=== PATIENT | female | born 1990 | race Hispanic/Latino ===

== ENCOUNTER 2018-02-15 04:22 | Emergency (ER) | payer BC ==
[2018-02-15 04:37] VITALS: BMI 31.3
[2018-02-15 04:42] VITALS: RESP 18
--- NOTE | 2018-02-15 04:49 | ED PDOC ---
HPI: Female Pain Time Seen by Provider: 02/15/18 04:35 Chief Complaint (Nursing): Female Genitourinary Additional Complaint(s): Pt seen and examined at bedside with attending. 27F no PMH p/w vaginal bleeding @ 8 weeks based on early ultrasound. She reports vaginal bleeding that started as spotting on Thursday evening and informed OB physician at that time. Thursday began with persistent spotting that gradually increased in volume and then passing of clots at 2pm. Patient has used 5-6 pads since 2pm, however in the middle of the night she began experiencing regular severe cramping 01/06 that brought her into the ER. She last took 650mg of Tylenol approximately an hour prior to presentation that has not helped with the pain. She denies current SOB, chest pain/palpitations, and denies fevers, chills at this time. OB: Dr Masters PMH: None PSH: as a child LMP: 12/05/2017 ALL: NKDA Past Medical History Vital Signs: Last Vital Signs Temp 37.2 C 02/15/18 04:37 Pulse 103 H 02/15/18 04:37 Resp 18 02/15/18 04:37 BP 99/57 L 02/15/18 04:37 Pulse Ox 99 02/15/18 04:37 - Family History Family History: States: No Known Family Hx - Allergies Allergies/Adverse Reactions: Allergies Allergy/AdvReac Type Severity Reaction Status Date / Time No Known Allergies Allergy Verified 02/15/18 04:32 Review of Systems ROS Statement: Except As Marked, All Systems Reviewed And Found Negative Genitourinary Female: Positive for: Vaginal Bleeding, Pelvic Pain Physical Exam - Reviewed Vital Signs Reviewed: Yes - Physical Exam Appears: Positive for: Non-toxic, In Acute Distress Head Exam: Positive for: ATRAUMATIC Skin: Positive for: Warm, Dry. Negative for: Normal Color (pale) Eye Exam: Positive for: Normal appearance, EOMI Neck: Positive for: Supple Cardiovascular/Chest: Positive for: Tachycardia. Negative for: Murmur Respiratory: Positive for: Normal Breath Sounds. Negative for: Crackles, Rales, Rhonchi, Wheezing Pelvic Exam: Positive for: Blood (with clots). Negative for: Speculum Exam Normal, Bimanual Exam Normal (significantly painful, unable to palpate cervical os) Extremity: Positive for: Normal ROM Neurologic/Psych: Positive for: Alert, Oriented - Laboratory Results Result Diagrams: 02/15/18 04:50 02/15/18 05:15 - ECG O2 Sat by Pulse Oximetry: 99 - Physician Consult Information Physician Contacted: Doris Gould Outcome Of Conversation: Spoke with Dr Gould regarding patient and circumstances surrounding ER presentation. At this time Dr Gould is in agreement with current management. If ultrasound shows RPC then misoprostol is appropriate, but if no evidence of RPC and bleeding is not excessive likely will not require adjunct medications. Medical Decision Making Medical Decision Making: Suspect SAB - CBC, CMP, betahCG, T&S - Morphine 2mg, 2L LR bolus - TV Ultrasound - Speculum Exam 0532 Pt and spouse informed of suspected SAB, will confirm with TV ultrasound/beta hCG levels, and plan to control pain and ensure hemodynamic stability. Disposition - Clinical Impression Clinical Impression: Vaginal bleeding affecting early - Patient ED Disposition Is Patient to be Admitted: Transfer of Care Discussed With Dr.: Pam Garner Doctor Will See Patient In The: Hospital Counseled Patient/Family Regarding: Diagnosis - Disposition Disposition Time: 07:00 Condition: STABLE Forms: [employer] (Sinhala)
[2018-02-15 05:06] LABS: BASO # 0.1 K/uL (0.0-0.2); BASO % 0.4 % (0.0-2.0); EOS # 0.1 K/uL (0.0-0.7); EOS % 0.8 % (0.0-4.0); HEMOGLOBIN 13.3 g/dL (12.0-16.0); LYMPH # 2.2 K/uL (1.0-4.3); LYMPH % 16.2 % (20.0-40.0); MEAN CELL VOLUME 93.8 fl (81.0-99.0); MEAN CORPUSCULAR HEMOGLOBIN 30.5 pg (27.0-31.0); MEAN CORPUSCULAR HGB CONC 32.5 g/dL (33.0-37.0); MEAN PLATELET VOLUME 7.4 fl (7.2-11.7); MONO # 0.6 K/uL (0.0-0.8); MONO % 4.7 % (0.0-10.0); NEUT # 10.7 K/uL (1.8-7.0); NEUT % 77.9 % (50.0-75.0); RBC 4.37 Mil/uL (3.80-5.20); RED CELL DISTRIBUTION WIDTH 12.9 % (11.5-14.5); WHITE BLOOD COUNT 13.7 K/uL (4.8-10.8)
[2018-02-15] MEDS ORDERED: Morphine 4 MG/ML VIAL IVP ONE ×2 (05:14→07:30)
[2018-02-15] MEDS: Lactated Ringer's 1,000 ML IV SCH ×2 (05:20→06:30)
[2018-02-15 05:32] LABS: ALB/GLOB RATIO 1.6 (1.0-2.1); ALBUMIN 4.6 g/dL (3.5-5.0); ALT/SGPT 50 U/L (9-52); AST/SGOT 32 U/L (14-36); BLOOD UREA NITROGEN 12 mg/dl (7-17); CALCIUM 9.5 mg/dL (8.4-10.2); GFR NON-AFRICAN AMERICAN > 60
--- NOTE | 2018-02-15 07:10 | ED PDOC ---
- Laboratory Results Result Diagrams: 02/15/18 04:50 02/15/18 05:15 - ECG O2 Sat by Pulse Oximetry: 99 Medical Decision Making Medical Decision Making: Time: 07:00 Patient care transferred from Dr. Chin to Dr. Garner pending Ultrasound. 09:[address] Gould in ED. Recommends d/c home with Doxycycline 100 mg PO bid X 5 days, Cytotec 800 mcg PV once if heavy bleeding with 1 refill and Motrin 600 mg. Pt has appt with Dr. Masters on 18. Scribe Attestation: Documented by Todd Doan, acting as a scribe for Pam Garner MD. Provider Scribe Attestation: All medical record entries made by the Scribe were at my direction and personally dictated by me. I have reviewed the chart and agree that the record accurately reflects my personal performance of the history, physical exam, medical decision making, and the department course for this patient. I have also personally directed, reviewed, and agree with the discharge instructions and disposition. Disposition - Clinical Impression Clinical Impression: Complete - POA Present On Arrival: None - Disposition Referrals: Almaz Masters MD [Staff Provider] - Disposition: Routine/Home Disposition Time: 09:45 Condition: STABLE Prescriptions: Doxycycline Hyclate 100 mg PO BID #10 capsule Ibuprofen [Motrin] 600 mg PO Q6H PRN #20 tab PRN Reason: Pain, Moderate (4-7) miSOPROStol [Cytotec] 800 mcg VAG ONCE #4 tab Instructions: Miscarriage Forms: [employer] (Polish)
[2018-02-15 10:00] VITALS: BP 107/57; PULSE 79; TEMP 99.3; O2SAT 97
--- NOTE | 2018-02-15 10:03 | US ---
Date of service: 02/15/2018 PROCEDURE: OB Pelvic Ultrasound HISTORY: vaginal bleeding LMP: 12/05/2017 suggesting gestation of 10 weeks 2 days. Patient reports spontaneous vaginal bleeding since 02/13/2018 2 p.m.. COMPARISON: None available. FINDINGS: UTERUS: Gestational sac: There is no defined gestational sac identified within the endometrial cavity. However, complex/heterogeneous material is appreciated within the lower endometrial cavity and possible upper endocervical canal with only trace fluid present at the lower uterine segment/upper cervical canal. No yolk sac is proven however this overall pattern suspicious for missed . Presumed decidual reaction is heterogeneous. Heart rate: None detected. age (Ultrasound estimated): Not applicable. Nohemi-gestational hemorrhage: Indeterminate. Date of delivery (Ultrasound estimated) :Not applicable. Uterus measures 8.7 x 5.9 x 4.3 cm. Normal in size and myometrial appearance. CERVIX: Measures cm. Long and closed. No cervical abnormality seen. RIGHT OVARY: Measures 3.6 x 2.6 x 2.2 cm. No mass lesion. Normal flow. Likely small corpus luteum cyst right ovary 1.1 cm greatest dimension. LEFT OVARY: Measures 2.6 x 2.1 x 1.6 cm. No solid mass. Normal flow. FREE FLUID: None. OTHER FINDINGS: None. IMPRESSION: Findings likely reflect missed with either hemorrhage or retained products of conception present at the lower uterine segment endometrial cavity level and upper endocervical canal. A defined intrauterine gestation is not appreciable. No yolk sac or definite gestational sac. Heterogeneous contents of the endometrial cavity measure at least 18.0 mm thickness and likely reflect retained products of conception. Clinically correlate further. Likely small right corpus luteum cyst.
--- NOTE | 2018-02-15 10:31 | CP.PCM.CON ---
History of Present Illness - History of Present Illness History of Present Illness: Pt is a 27 yo @ 8.1 wks as per 6 wk U/S, presents with abdominal pain and vaginal bleeding. Patient started having abdominal cramps and brownish discharge 02/13 and it progressed to severe pain and bleeding. Patient soaked through 5-6 pads yesterday and presented to hospital with severe abdominal pain and bleeding. On U/S shows only retained products and VSS in ER. Hgb=13.6. Patient reports bleeding has decreased. Otherwise pt denies CP, SOB, no N/V. Review of Systems - Review of Systems Systems not reviewed;Unavailable: Acuity of Condition - EENT Eyes: As Per HPI - Breasts Breasts: As Per HPI - Cardiovascular Cardiovascular: As Per HPI - Respiratory Respiratory: As Per HPI - Gastrointestinal Gastrointestinal: As Per HPI - Genitourinary Genitourinary: As Per HPI - Reproductive: Female Reproductive:Female: As Per HPI Past Patient History - Past Social History Smoking Status: Never Smoked - PSYCHIATRIC Hx Substance Use: No - SURGICAL HISTORY Hx Surgeries: Yes Hx Tonsillectomy: Yes - ANESTHESIA Hx Anesthesia: Yes Meds Home Medications: Home Medication List Medication Instructions Recorded Confirmed Type Doxycycline Hyclate 100 mg PO BID #10 capsule 02/15/18 Rx Ibuprofen [Motrin] 600 mg PO Q6H PRN #20 tab 02/15/18 Rx miSOPROStol [Cytotec] 800 mcg VAG ONCE #4 tab 02/15/18 Rx Allergies/Adverse Reactions: Allergies Allergy/AdvReac Type Severity Reaction Status Date / Time No Known Allergies Allergy Verified 02/15/18 04:32 Physical Exam - Head Exam Head Exam: ATRAUMATIC - Eye Exam Pupil Exam: NORMAL ACCOMODATION - Respiratory Exam Respiratory Exam: NORMAL BREATHING PATTERN - Cardiovascular Exam Cardiovascular Exam: REGULAR RHYTHM - GI/Abdominal Exam GI & Abdominal Exam: Normal Bowel Sounds, Soft Additional comments: no rebound, no gaurding - Exam Additional comments: blood and products noted at os, mod about of bleeding, removed with ring forceps, supsequent os appears slightly dilated, no active bleeding - Extremities Exam Extremities exam: Positive for: normal inspection - Neurological Exam Neurological exam: Oriented x3 - Psychiatric Exam Psychiatric exam: Normal Affect Results - Vital Signs Recent Vital Signs: Last Vital Signs Temp 99 F 02/15/18 04:37 Pulse 82 02/15/18 06:35 Resp 18 02/15/18 06:35 BP 101/57 L 02/15/18 06:35 Pulse Ox 99 02/15/18 07:10 - Labs Result Diagrams: 02/15/18 04:50 02/15/18 05:15 Labs: Laboratory Results - last 24 hr 02/15/18 02/15/18 02/15/18 04:50 04:50 05:15 WBC 13.7 H RBC 4.37 Hgb 13.3 Hct 41.0 MCV 93.8 MCH 30.5 MCHC 32.5 L RDW 12.9 Plt Count 251 MPV 7.4 Neut % (Auto) 77.9 H Lymph % (Auto) 16.2 L Maries % (Auto) 4.7 Eos % (Auto) 0.8 Baso % (Auto) 0.4 Neut # (Auto) 10.7 H Lymph # (Auto) 2.2 Maries # (Auto) 0.6 Eos # (Auto) 0.1 Baso # (Auto) 0.1 Sodium 140 Potassium 4.3 Chloride 106 Carbon Dioxide 22 Anion Gap 16 BUN 12 Creatinine 0.6 L Est GFR ( Amer) > 60 Est GFR (Non-Af Amer) > 60 Random Glucose 123 H Calcium 9.5 Total Bilirubin 0.7 AST 32 ALT 50 Alkaline Phosphatase 51 Total Protein 7.5 Albumin 4.6 Globulin 2.9 Albumin/Globulin Ratio 1.6 Beta HCG, Quant 32502.00 Blood Type B POSITIVE Antibody Screen Negative BBK History Checked No verified bt Assessment & Plan - Assessment and Plan (Free Text) Assessment: A/P 27 yo presents with complete miscarriage 1. patient evaluated and after exam looks to be complete miscarriage. Products evacuated at os, minimal bleeding noted after. Patient's abdominal pain tolerable with meds. Hgb = 13.6, VSS, pt received IVF. 2. Patient looks to be stable for discharge, recommend for patient to be discharged with Doxycycline 100mg PO BID x 5 days, Motrin 600mg PO q 6hrs prn pain, and if bleeding increased significantly Cytotec 800mg PV x 1 dose. Bleeding precaution discussed with patient. All questions answered 3. All questions answered. Pt has follow up appt Mar [address] Masters - Date & Time Date: 02/15/18 Time: 10:31
== END 2018-02-15 10:10 | disposition home or self-care (01) ==
LOC: H.ER 04:22
DX: O03.9 Complete or unspecified spontaneous abortion without complication (principal); Z3A.08 8 weeks gestation of pregnancy
CPT/HCPCS: 76830; 80053; 84702; 85025; 86850; 86900; 88305; 96361; 96374; 96376; 99284; J2270; J7120